=== PATIENT | female | born 1955 | race Caucasian/White ===

== ENCOUNTER 2024-12-28 08:57 | Day surgery (SDC) | payer MEDICARE, BC ==
[~2024-12-28 08:57] MED LIST: Sodium Chloride 0.9% 10 ML Syringe FLUSH PRN; Sodium Chloride 0.9% 10 ML Syringe FLUSH SCH
[2024-12-28] MEDS: Lactated Ringers 1,000 ML IV SCH (09:25)
[2024-12-28] MEDS: oxyCODONE ER 10 MG TAB.ER PO ONE (09:48)
[2024-12-28] MEDS ORDERED: dexmedeTOMIDine HCl 200 MCG/2 ML SDV ONE (10:52)
[2024-12-28] MEDS ORDERED: propofoL 500 MG/50 ML 50 ML ONE (10:52)
[2024-12-28] MEDS ORDERED: Ondansetron 4 MG/2 ML SDV ONE (10:54)
[2024-12-28] MEDS ORDERED: Phenylephrine 1% 10 MG/ML SDV ONE (11:42)
[2024-12-28] MEDS ORDERED: Ropivacaine 0.5% 5 MG/ML 30 ML SDV ONE (11:53)
[2024-12-28] MEDS ORDERED: ePHEDrine 50 MG/ML SDV ONE (12:02)
[2024-12-28] MEDS ORDERED: Glycopyrrolate 0.2 MG/ML 2 ML SDV ONE (12:07)
[2024-12-28] MEDS ORDERED: Propofol 200 MG/20 ML SDV ONE (12:45)
[2024-12-28] MEDS: Morphine 8 MG, EPINEPHrine 0.3 MG, Cefuroxime 750 MG, Ketorolac 30 MG, Sodium Chloride ... PRN (12:45)
[2024-12-28] MEDS ORDERED: Lactated Ringers 1,000 ML ONE (12:47)
[2024-12-28] MEDS: Triamcinolone Acetonide 40 MG/ML 1 ML SDV ONE (13:07)
== END 2024-12-28 16:10 | disposition home or self-care (01) ==
LOC: JD.SDS 08:57
PROVIDERS: ATTEND Orthopaedic Surgery
DX: M17.0 Bilateral primary osteoarthritis of knee (principal); Z91.09 Other allergy status, other than to drugs and biological substances; Z79.82 Long term (current) use of aspirin; Z79.899 Other long term (current) drug therapy
CPT/HCPCS: 0055T; 20610; 27447; 64447; 73560; 97116; 97161; A9270; C1713; C1776; J0169; J0665; J0690; J0697; J1596; J1885; J2272; J2371; J2405; J2704; J2795; J3301; J3373; J7120; 01402; J3490